=== PATIENT | male | born 1940 | race Caucasian/White ===

== ENCOUNTER → 2018-05-23 | Outpatient (CLI) | payer MEDICARE, OTHER ==
[~2018-05-23] MED LIST: LIPITOR 20 MG T20 M1 PO; LISINOPRIL10 MG PO; SYNTHROID50 MCG PO; VITAMIN D1000 UNI1 PO
--- NOTE | ~2018-05-23 | EKG ---
[address] [address] ELECTROCARDIOGRAM REPORT Name: LASHAYULIET Room #: REG DEJUAN Moore#: [id number] Admission: 05/23/18 Attend Phys: Jamie Bellamy, Discharge: Date of : 40 Report #: [id number] THIS REPORT FOR: //name// [facility] Test Date: 2018-05-23 Test Time: 10:37:24 Pat Name: YULIET COLBY Department: Room: Gender: Pairer Odds: BRANDT : 1940 Requested By: Jamie Bellamy Order Number: [id number] MD: Juan Bolivar Measurements Intervals [place] Rate: 82 P: -31 ME: 256 QRS: -12 QRSD: 97 T: 16 QT: 370 QTc: 432 Interpretive Statements Sinus rhythm Prolonged ME interval No previous ECG available for comparison Electronically Signed On 05-23-2018 13:27:57 [employer] by Juan Bolivar [email or web address] <ELECTRONICALLY SIGNED> By: Juan Bolivar MD 05/23/18 1327 [facility] Gómez Bolivar MD /CATINA
== END | disposition home or self-care (01) ==
LOC: LITH 10:10
DX: N20.1 Calculus of ureter (principal); I10 Essential (primary) hypertension; M10.9 Gout, unspecified; E11.9 Type 2 diabetes mellitus without complications; Z88.0 Allergy status to penicillin; Z98.890 Other specified postprocedural states; Z79.899 Other long term (current) drug therapy